=== PATIENT | female | born 1985 | race Two or more races ===

== ENCOUNTER 2018-02-12 06:41 | Emergency (ER) | payer OTHER ==
[2018-02-12] MEDS ORDERED: NS 1,000 ML IV ONE (07:00)
[2018-02-12] MEDS ORDERED: ONDANSETRON 4 MG/2 ML VIAL IVP ONE (07:00)
--- NOTE | 2018-02-12 07:07 | EDPHY ---
H & P Stated Complaint: uti sx 1 wk taking azo x2 days now r flank pain Time Seen by Provider: 02/12/18 06:49 HPI/ROS: Chief Complaint: Right flank pain HPI: 32-year-old woman presenting with severe right flank pain since last night. Patient states she began having left flank pain and then it migrated to the right. She has had urinary urgency and frequency for the last several days and is taking azo. She is not taking antibiotics. Some nausea but no vomiting. No fevers or chills. Pain is not radiating to her groin her abdomen. She also has a history of musculoskeletal back pain but this feels different. No numbness or weakness. No pain with ambulating. There are no aggravating or alleviating factors. Last menstrual period was 2 weeks ago normal. She has never been . She has had a negative test in the last several days. ROS: 10 point Review of Systems is negative except as noted in the HPI. PMH: Migraine headaches, gastritis, musculoskeletal back pain Social History: No smoking, no alcohol, no recreational drug use Family History: non-contributory Physical Exam: Gen: Awake, Alert, uncomfortable appearing HEENT: Nose: no rhinorrhea Eyes: PERRLA, EOMI Mouth: Moist mucosa Neck: Supple, no JVD Chest: nontender, lungs clear to auscultation Heart: S1, S2 normal, no murmur Abd: Soft, non-tender, no guarding, no adnexal tenderness Back: no CVA tenderness, no midline tenderness patient has reproducible tenderness to palpation of her right paraspinal muscles. Positive CVA tenderness but difficult to differentiate from her musculoskeletal tenderness. Ext: no edema, non-tender Skin: no rash Neuro: CN II-XII intact, Sensation grossly intact, Strength 5/5 in bilateral upper and lower extremities - Personal History LMP (Females 10-55): 8-14 Days Ago Current Tetanus/Diphtheria Vaccine: Yes Current Tetanus Diphtheria and Acellular Pertussis (TDAP): Yes - Medical/Surgical History Hx Asthma: No Hx Chronic Respiratory Disease: No Hx Diabetes: No Hx Cardiac Disease: No Hx Renal Disease: No Hx Cirrhosis: No Hx Alcoholism: No Hx HIV/AIDS: No Hx Splenectomy or Spleen Trauma: No Other PMH: gastritis - Social History Smoking Status: Former smoker Constitutional: Initial Vital Signs Temperature (C) 37.1 C 02/12/18 06:47 Heart Rate 91 02/12/18 06:47 Respiratory Rate 18 02/12/18 06:47 Blood Pressure 123/75 H 02/12/18 06:47 O2 Sat (%) 97 02/12/18 06:47 O2 Delivery Mode Room Air Allergies/Adverse Reactions: No Known Allergies Allergy (Unverified 02/12/18 06:51) Home Medications: Medication Instructions Recorded Cranberry Fruit Concentrate [Azo 250 mg PO 02/12/18 Cranberry] Medical Decision Making - Diagnostics Imaging Results: Imaging Impressions Abdomen/Pelvis Ultrasound 02/12/18 07:37 Impression: Normal. No renal obstruction identified. Results called and discussed with Roly Hurt MD, at 02/12/2018 8:47 Imaging: Discussed imaging studies w/ nurse discharge Radiologist ED Course/Re-evaluation: Urinalysis shows significant infection and hematuria. Have ordered urine culture and a g of ceftriaxone. Will also get a renal ultrasound to rule out kidney stone evaluate for pyelonephritis. Renal ultrasound is unremarkable. Patient has definitely urinalysis consistent with pyelonephritis. She has been given ceftriaxone here. Will start her on Keflex. She will continue the peridium as needed and can take Tylenol and Motrin. She will follow up with her primary care physician at [place] in 2-3 days for further evaluation. I have encouraged her to return for any concerns. - Data Points Laboratory Results: Laboratory Results 02/12/18 07:20 02/12/18 07:20 02/12/18 02/12/18 02/12/18 07:20 07:20 07:20 WBC 11.11 10^3/uL H 10^3/uL (3.80-9.50) RBC 4.77 10^6/uL 10^6/uL (4.18-5.33) Hgb 14.1 g/dL g/dL (12.6-16.3) Hct 40.9 % % (38.0-47.0) MCV 85.7 fL fL (81.5-99.8) MCH 29.6 pg pg (27.9-34.1) MCHC 34.5 g/dL g/dL (32.4-36.7) RDW 12.5 % % (11.5-15.2) Plt Count 218 10^3/uL 10^3/uL (150-400) MPV 11.0 fL fL (8.7-11.7) Neut % (Auto) 78.7 % H % (39.3-74.2) Lymph % (Auto) 11.5 % L % (15.0-45.0) Holmes % (Auto) 8.5 % % (4.5-13.0) Eos % (Auto) 0.4 % L % (0.6-7.6) Baso % (Auto) 0.4 % % (0.3-1.7) Nucleat RBC Rel Count 0.0 % % (0.0-0.2) Absolute Neuts (auto) 8.76 10^3/uL H 10^3/uL (1.70-6.50) Absolute Lymphs (auto) 1.28 10^3/uL 10^3/uL (1.00-3.00) Absolute Monos (auto) 0.94 10^3/uL H 10^3/uL (0.30-0.80) Absolute Eos (auto) 0.04 10^3/uL 10^3/uL (0.03-0.40) Absolute Basos (auto) 0.04 10^3/uL 10^3/uL (0.02-0.10) Absolute Nucleated RBC 0.00 10^3/uL 10^3/uL (0-0.01) Immature Gran % 0.5 % % (0.0-1.1) Immature Gran # 0.05 10^3/uL 10^3/uL (0.00-0.10) Sodium 136 mEq/L mEq/L (135-145) Potassium 3.8 mEq/L mEq/L (3.3-5.0) Chloride 103 mEq/L mEq/L (97-110) Carbon Dioxide 27 mEq/l mEq/l (22-31) Anion Gap 6 mEq/L L mEq/L (8-16) BUN 12 mg/dL mg/dL (7-23) Creatinine 0.6 mg/dL mg/dL (0.6-1.0) Estimated GFR > 60 Glucose 97 mg/dL mg/dL (70-100) Calcium 9.5 mg/dL mg/dL (8.5-10.4) Total Bilirubin 1.2 mg/dL mg/dL (0.1-1.4) AST 29 IU/L IU/L (14-46) ALT 51 IU/L IU/L (9-52) Alkaline Phosphatase 80 IU/L IU/L (38-126) Total Protein 7.2 g/dL g/dL (6.3-8.2) Albumin 4.2 g/dL g/dL (3.5-5.0) Lipase 144 IU/L IU/L (23-300) Beta HCG, Qual NEGATIVE Urine Color Urine Appearance Urine pH Ur Specific Vandiver Urine Protein Urine Ketones Urine Blood Urine Nitrate Urine Bilirubin Urine Urobilinogen Ur Leukocyte Esterase Urine RBC Urine WBC Ur Epithelial Cells Urine Bacteria Urine Mucus Urine Glucose 02/12/18 06:55 WBC RBC Hgb Hct MCV MCH MCHC RDW Plt Count MPV Neut % (Auto) Lymph % (Auto) Holmes % (Auto) Eos % (Auto) Baso % (Auto) Nucleat RBC Rel Count Absolute Neuts (auto) Absolute Lymphs (auto) Absolute Monos (auto) Absolute Eos (auto) Absolute Basos (auto) Absolute Nucleated RBC Immature Gran % Immature Gran # Sodium Potassium Chloride Carbon Dioxide Anion Gap BUN Creatinine Estimated GFR Glucose Calcium Total Bilirubin AST ALT Alkaline Phosphatase Total Protein Albumin Lipase Beta HCG, Qual Urine Color SONJA Urine Appearance MODERATELY TURBID Urine pH 6.0 (5.0-7.5) Ur Specific Vandiver 1.012 (1.002-1.030) Urine Protein 2+ H (NEGATIVE) Urine Ketones NEGATIVE (NEGATIVE) Urine Blood 3+ H (NEGATIVE) Urine Nitrate POSITIVE H (NEGATIVE) Urine Bilirubin NEGATIVE (NEGATIVE) Urine Urobilinogen 4.0 EU H EU (0.2-1.0) Ur Leukocyte Esterase 2+ H (NEGATIVE) Urine RBC 50-182 /hpf H /hpf (0-3) Urine WBC 50-182 /hpf H /hpf (0-3) Ur Epithelial Cells TRACE /lpf /lpf (NONE-1+) Urine Bacteria 3+ /hpf H /hpf (NONE SEEN) Urine Mucus TRACE /lpf /lpf (NONE-1+) Urine Glucose NEGATIVE (NEGATIVE) Medications Given: Discontinued Medications Sodium Chloride (Ns) 1,000 mls @ 0 mls/hr IV ONCE ONE; Wide Open PRN Reason: Protocol Stop: 02/12/18 07:01 Last Admin: 02/12/18 07:20 Dose: 1,000 mls Ceftriaxone Sodium/Dextrose (Rocephin 1 Gm (Premix)) 50 mls @ 100 mls/hr IV EDNOW ONE PRN Reason: Protocol Stop: 02/12/18 08:03 Last Admin: 02/12/18 07:40 Dose: 50 mls Ketorolac Tromethamine (Toradol) 30 mg IVP EDNOW ONE Stop: 02/12/18 08:43 Last Admin: 02/12/18 08:53 Dose: 30 mg Morphine Sulfate (Morphine) 4 mg IVP ONCE ONE Stop: 02/12/18 07:01 Last Admin: 02/12/18 07:17 Dose: 4 mg Ondansetron HCl (Zofran) 4 mg IVP EDNOW ONE Stop: 02/12/18 07:01 Last Admin: 02/12/18 07:16 Dose: 4 mg Departure - Departure Disposition: Home, Routine, Self-Care Clinical Impression: Acute pyelonephritis Condition: Good Instructions: Urinary Tract Infection in Women (ED), Kidney Infection (ED) Additional Instructions: Please take your full course of antibiotics. You may continue taking the Pyridium for urinary discomfort. Alternate Tylenol with ibuprofen for pain or discomfort or fever. I would encourage you to eat a yogurt every day or take probiotics while you're on the antibiotics. Follow up with a primary care physician at [place] in 2-3 days for further evaluation. Return to the emergency department for fevers or chills, worsening pain, nausea vomiting, or any other concerns. Referrals: [facility] ,. [Edm Groups for Call Sched] - As per Instructions
[2018-02-12 07:36] LABS: PLATELET COUNT 218 10^3/uL (150-400)
[2018-02-12] MEDS ORDERED: KETOROLAC 30 MG/1 ML SDV ONE (08:37)
[2018-02-12] MEDS ORDERED: KETOROLAC 30 MG/1 ML SDV IVP ONE (08:42)
[2018-02-12 08:55] VITALS: BP 115/72
== END 2018-02-12 09:21 | disposition home or self-care (01) ==
DX: N10 Acute pyelonephritis (principal); E86.9 Volume depletion, unspecified; B96.20 Unspecified Escherichia coli [E. coli] as the cause of diseases classified elsewhere; Z87.891 Personal history of nicotine dependence
CPT/HCPCS: 96365; J0696; J1885; J2270; J2405